=== PATIENT | female | born 1970 | race Caucasian/White ===

== ENCOUNTER 2018-02-01 08:13 | Emergency (ER) | payer OTHER, MEDICAID ==
[2018-02-01] MEDS: ONDANSETRON 4 MG INJ IV (09:22)
[2018-02-01] MEDS: ACETAMINOPHEN 500 MG TAB PO (09:22)
[2018-02-01] MEDS: morphine 4 MG/ML VIAL IV (09:22)
[2018-02-01 09:24] LABS: ADD MAN DIFF? NO
[2018-02-01] MEDS: SODIUM CHLORIDE 0.9% 1L BAG IV* (09:27)
[2018-02-01 09:36] LABS: WHITE BLOOD COUNT 9.7 10^3/ul (4.8-10.8)
[2018-02-01 09:36] LABS: ABNORMAL IP MESSAGE 1; BASOPHIL # 0.1 10^3/ul (0.0-0.1); BASOPHILS % 0.5 % (0.0-2.0); EOSINOPHILS % 0.3 % (0.0-7.0); HEMATOCRIT 40.2 % (37.0-47.0); LYMPHOCYTES # 0.5 10^3/ul (0.8-2.9); LYMPHOCYTES % 4.8 % (15.0-51.0); MEAN CORPUSCULAR HEMOGLOBIN 24.8 pg (29.0-33.0); MEAN CORPUSCULAR HGB CONC 32.3 g/dl (32.0-37.0); MEAN CORPUSCULAR VOLUME 76.7 fl (82.0-101.0); MEAN PLATELET VOLUME 12.6 fl (7.4-10.4); MONOCYTE # 0.3 10^3/ul (0.3-0.9); NEUTROPHIL # 8.9 10^3/ul (1.6-7.5); NEUTROPHILS % 91.1 % (39.0-77.0); PLATELET COUNT 152 10^3/UL (140-415); RED BLOOD COUNT 5.24 10^6/ul (4.20-5.40); RED CELL DISTRIBUTION WIDTH 16.2 % (11.5-14.5)
[2018-02-01 09:44] LABS: ALANINE AMINOTRANSFERASE 33 IU/L (13-69); ALBUMIN 3.9 g/dl (3.3-4.9); ALBUMIN/GLOBULIN RATIO 1.11; ALKALINE PHOSPHATASE 173 IU/L (42-121); ANION GAP 13 (8-16); ASPARTATE AMINO TRANSFERASE 31 IU/L (15-46); BILIRUBIN,INDIRECT 0.7 mg/dl (0-1.1); BILIRUBIN,TOTAL 0.7 mg/dl (0.2-1.3); BLOOD UREA NITROGEN 10 mg/dl (7-20); CALCIUM 8.9 mg/dl (8.4-10.2); CARBON DIOXIDE 29 mmol/L (21-31); CHLORIDE 101 mmol/L (97-110); CREATININE 0.61 mg/dl (0.44-1.00); GLUCOSE 264 mg/dl (70-220); SODIUM 140 mmol/L (135-144); TOTAL PROTEIN 7.4 g/dl (6.1-8.1)
[2018-02-01 09:47] LABS: POTASSIUM 2.9 mmol/L (3.5-5.1)
[2018-02-01 09:49] LABS: POSITIVE DIFF @See below
[2018-02-01 10:08] LABS: LACTIC ACID 2.2 mmol/L (0.5-2.0)
[2018-02-01] MEDS: POTASSIUM CHLORIDE (SR) 20 MEQ TAB PO (10:12)
[2018-02-01] MEDS: CEFEPIME 2GM/50 ML (PMX) 50 ML IVPB (10:33)
[2018-02-01 10:54] LABS: ADD UMIC YES; UR ASCORBIC ACID NEGATIVE (NEGATIVE); UR BACTERIA MODERATE /HPF (NONE SEEN); UR BILIRUBIN (Dip) NEGATIVE (NEGATIVE); UR BLOOD (Dip) 2+ mg/dL (NEGATIVE); UR CLARITY CLOUDY (CLEAR); UR COLOR YELLOW (YELLOW); UR GLUCOSE (Dip) 2+ mg/dL (NEGATIVE); UR KETONES (Dip) 1+ mg/dL (NEGATIVE); UR LEUKOCYTE ESTERASE (Dip) 3+ Leu/ul (NEGATIVE); UR NITRITE (Dip) NEGATIVE (NEGATIVE); UR RBC 27 /HPF (0-5); UR TOTAL PROTEIN (Dip) 2+ mg/dl (NEGATIVE); UR UROBILINOGEN (Dip) 2+ mg/dL (NEGATIVE); UR WBC > 182 /HPF (0-5)
[2018-02-01 11:56] LABS: LACTIC ACID 1.3 mmol/L (0.5-2.0)
[2018-02-01 22:42] LABS: BAND NEUTROPHILS #M 0.7 10^3/ul (0.0-0.6); BAND NEUTROPHILS % (M) 8 % (0-4); BASOPHIL #M 0.1 10^3/ul (0.0-0.0); BASOPHILS % (M) 2 % (0-2); EOSINOPHILS % (M) 3 % (0-7); ERYTHROBLAST% (NRBC) (M) 1 % (0-0); GIANT THROMBO% (M) 5 % (0-0); LYMPHOCYTES #M 0.5 10^3/ul (0.8-2.9); LYMPHOCYTES % (M) 6 % (15-51); MONOCYTES % (M) 1 % (0-11); PLATELET ESTIMATE DECREASED; POIKILOCYTOSIS 1+ (0-0); SEG NEUT #M 7.8 10^3/ul (1.6-7.5); SEGMENTED NEUTROPHILS (M) % 80 % (39-77); SMUDGE%M 7 % (0-0)
== END 2018-02-01 13:54 | disposition home or self-care (01) ==
LOC: FTE 08:13
DX: N12 Tubulo-interstitial nephritis, not specified as acute or chronic (principal); E11.9 Type 2 diabetes mellitus without complications; E87.6 Hypokalemia; Z79.84 Long term (current) use of oral hypoglycemic drugs
CPT/HCPCS: 36415; 74176; 80053; 81001; 83605; 84703; 85025; 87040; 87086; 96361; 96365; 96375; 99285-25

== ENCOUNTER 2018-02-01 18:52 | Inpatient (IN) | payer OTHER ==
[2018-02-01] MEDS: ACETAMINOPHEN 325 MG TAB PO (20:06)
[2018-02-01] MEDS: ONDANSETRON 4 MG INJ IV (20:06)
[2018-02-01] MEDS: SODIUM CHLORIDE 0.9% 1L BAG IV* (20:07)
[2018-02-01 20:08] LABS: ABNORMAL IP MESSAGE 1
[2018-02-01 20:10] LABS: HEMATOCRIT 38.2 % (37.0-47.0); HEMOGLOBIN 12.1 g/dl (12.0-16.0); MEAN CORPUSCULAR HEMOGLOBIN 24.6 pg (29.0-33.0); MEAN CORPUSCULAR HGB CONC 31.7 g/dl (32.0-37.0); MEAN CORPUSCULAR VOLUME 77.6 fl (82.0-101.0); MEAN PLATELET VOLUME 12.6 fl (7.4-10.4); PLATELET COUNT 124 10^3/UL (140-415); RED BLOOD COUNT 4.92 10^6/ul (4.20-5.40); RED CELL DISTRIBUTION WIDTH 16.2 % (11.5-14.5)
[2018-02-01 20:10] LABS: WHITE BLOOD COUNT 4.6 10^3/ul (4.8-10.8)
[2018-02-01 20:16] LABS: ALANINE AMINOTRANSFERASE 37 IU/L (13-69); ALBUMIN 3.7 g/dl (3.3-4.9); ALBUMIN/GLOBULIN RATIO 1.05; ALKALINE PHOSPHATASE 159 IU/L (42-121); ANION GAP 16 (8-16); ASPARTATE AMINO TRANSFERASE 32 IU/L (15-46); BILIRUBIN,INDIRECT 0.7 mg/dl (0-1.1); BILIRUBIN,TOTAL 0.7 mg/dl (0.2-1.3); BLOOD UREA NITROGEN 10 mg/dl (7-20); CALCIUM 8.3 mg/dl (8.4-10.2); CARBON DIOXIDE 23 mmol/L (21-31); CHLORIDE 105 mmol/L (97-110); GLUCOSE 259 mg/dl (70-220); POTASSIUM 4.1 mmol/L (3.5-5.1); SODIUM 140 mmol/L (135-144); TOTAL PROTEIN 7.2 g/dl (6.1-8.1)
[2018-02-01 20:18] LABS: LACTIC ACID 2.2 mmol/L (0.5-2.0)
[2018-02-01 20:28] LABS: TROPONIN-I 0.181 ng/ml (0.000-0.120)
[2018-02-01 20:43] LABS: ADD UMIC YES; UR ASCORBIC ACID NEGATIVE (NEGATIVE); UR BACTERIA FEW /HPF (NONE SEEN); UR BILIRUBIN (Dip) NEGATIVE (NEGATIVE); UR BLOOD (Dip) 1+ mg/dL (NEGATIVE); UR CLARITY CLEAR (CLEAR); UR COLOR YELLOW (YELLOW); UR GLUCOSE (Dip) 2+ mg/dL (NEGATIVE); UR KETONES (Dip) 1+ mg/dL (NEGATIVE); UR LEUKOCYTE ESTERASE (Dip) TRACE Leu/ul (NEGATIVE); UR NITRITE (Dip) NEGATIVE (NEGATIVE); UR RBC 8 /HPF (0-5); UR SPECIFIC GRAVITY (Dip) 1.013 (1.003-1.030); UR TOTAL PROTEIN (Dip) 1+ mg/dl (NEGATIVE); UR UROBILINOGEN (Dip) 2+ mg/dL (NEGATIVE); UR WBC 49 /HPF (0-5)
[2018-02-01] MEDS: ASPIRIN 81 MG TAB PO (20:57)
[2018-02-01 21:09] LABS: ADD MAN DIFF? YES; POSITIVE DIFF @See below
[2018-02-01] MEDS: CEFEPIME 1GM/50 ML (PMX) 50 ML IVPB (22:01)
[2018-02-01 22:29] LABS: LACTIC ACID 1.1 mmol/L (0.5-2.0)
[2018-02-01] MEDS ORDERED: NITROGLYCERIN (SL) 0.4 MG TAB SL (23:30)
[2018-02-01] MEDS ORDERED: morphine 2 MG INJ IV (23:30)
[2018-02-02 00:20] LABS: LACTIC ACID 1.2 mmol/L (0.5-2.0)
[2018-02-02] MEDS: SOD CHLORIDE 0.9% 1,000 ML IV ×2 (00:20→17:25)
[2018-02-02] MEDS: LEVOFLOXACIN 500MG/D5W (PMX) 100 ML IVPB (00:29)
[2018-02-02] MEDS ORDERED: DEXTROSE 50% 50 ML SYRINGE IV ×2 (00:30)
[2018-02-02] MEDS ORDERED: GLUCOSE GEL 15 GRAM TUBE PO ×2 (00:30)
[2018-02-02] MEDS ORDERED: GLUCAGON 1 MG INJ IM (00:30)
[2018-02-02] MEDS ORDERED: GLUCOSE GEL 15 GRAM TUBE BUCCAL (00:30)
[2018-02-02] MEDS: ZOLPIDEM 5 MG TAB PO (00:38)
[2018-02-02 00:49] LABS: TROPONIN-I 0.343 ng/ml (0.000-0.120)
[2018-02-02] MEDS: ACCU-CHEK XX (02:00)
[2018-02-02 03:15] LABS: ABNORMAL IP MESSAGE 1; ADD MAN DIFF? NO; BASOPHILS % 0.3 % (0.0-2.0); EOSINOPHILS % 0.3 % (0.0-7.0); HEMATOCRIT 34.9 % (37.0-47.0); HEMOGLOBIN 10.9 g/dl (12.0-16.0); LYMPHOCYTES # 1.5 10^3/ul (0.8-2.9); LYMPHOCYTES % 12.9 % (15.0-51.0); MEAN CORPUSCULAR HEMOGLOBIN 24.5 pg (29.0-33.0); MEAN CORPUSCULAR HGB CONC 31.2 g/dl (32.0-37.0); MEAN CORPUSCULAR VOLUME 78.4 fl (82.0-101.0); MEAN PLATELET VOLUME 13.1 fl (7.4-10.4); MONOCYTE # 0.5 10^3/ul (0.3-0.9); MONOCYTES % 4.2 % (0.0-11.0); NEUTROPHIL # 9.7 10^3/ul (1.6-7.5); PLATELET COUNT 134 10^3/UL (140-415); RED BLOOD COUNT 4.45 10^6/ul (4.20-5.40); RED CELL DISTRIBUTION WIDTH 16.8 % (11.5-14.5)
[2018-02-02 03:15] LABS: WHITE BLOOD COUNT 11.8 10^3/ul (4.8-10.8)
[2018-02-02 03:25] LABS: POSITIVE DIFF @See below
[2018-02-02 03:43] LABS: CREATINE KINASE 56 IU/L (23-200)
[2018-02-02 03:49] LABS: ALANINE AMINOTRANSFERASE 32 IU/L (13-69); ALKALINE PHOSPHATASE 95 IU/L (42-121); ANION GAP 13 (8-16); ASPARTATE AMINO TRANSFERASE 26 IU/L (15-46); BILIRUBIN,INDIRECT 0.4 mg/dl (0-1.1); BILIRUBIN,TOTAL 0.4 mg/dl (0.2-1.3); BLOOD UREA NITROGEN 9 mg/dl (7-20); CALCIUM 7.6 mg/dl (8.4-10.2); CARBON DIOXIDE 22 mmol/L (21-31); CHLORIDE 111 mmol/L (97-110); CHOL/HDL RATIO 5.7 RATIO; CHOLESTEROL 120 mg/dl (100-200); CREATININE 0.47 mg/dl (0.44-1.00); GLUCOSE 258 mg/dl (70-220); HDL CHOLESTEROL 21 mg/dl (34-88); LDL CHOLESTEROL,CALCULATED 57 mg/dl; SODIUM 142 mmol/L (135-144); TOTAL PROTEIN 6.3 g/dl (6.1-8.1); TRIGLYCERIDES 211 mg/dl (0-149)
[2018-02-02 03:56] LABS: CK INDEX 2.2; CK-MB 1.21 ng/ml (0.0-2.4); TROPONIN-I 0.214 ng/ml (0.000-0.120)
[2018-02-02 03:57] LABS: TROPONIN-I 0.215 ng/ml (0.000-0.120)
[2018-02-02] MEDS: PANTOPRAZOLE 40 MG INJ IV (05:54)
[2018-02-02] MEDS: ASPIRIN (EC) 81 MG TAB PO (08:34)
[2018-02-02] MEDS: ENOXAPARIN 40 MG/0.4 ML SYG SC (08:35)
[2018-02-02] MEDS: INSULIN ASPART [NOVOLOG] 3 ML PEN SC ×4 (08:37→20:52)
[2018-02-02 09:30] LABS: CREATINE KINASE 49 IU/L (23-200)
[2018-02-02 09:42] LABS: CK INDEX 2.4; CK-MB 1.17 ng/ml (0.0-2.4)
[2018-02-02] MEDS: ACETAMINOPHEN 325 MG TAB PO (16:17)
[2018-02-02] MEDS ORDERED: morphine LIQ (10 MG/5 ML) CUP PO (17:00)
[2018-02-02] MEDS: CEFEPIME 1GM/50 ML (PMX) 50 ML IVPB (20:50)
[2018-02-02] MEDS: INSULIN GLARGINE [LANTus] (100 UNITS/ML) SYG SC (20:53)
[2018-02-03] MEDS: ACCU-CHEK XX (02:00)
[2018-02-03] MEDS: PANTOPRAZOLE 40 MG INJ IV (05:31)
[2018-02-03 07:44] LABS: ADD MAN DIFF? NO
[2018-02-03 07:54] LABS: WHITE BLOOD COUNT 7.4 10^3/ul (4.8-10.8)
[2018-02-03 07:54] LABS: ABNORMAL IP MESSAGE 1; BASOPHILS % 0.4 % (0.0-2.0); EOSINOPHILS % 0.5 % (0.0-7.0); HEMATOCRIT 34.3 % (37.0-47.0); HEMOGLOBIN 10.7 g/dl (12.0-16.0); LYMPHOCYTES % 13.9 % (15.0-51.0); MEAN CORPUSCULAR HEMOGLOBIN 24.1 pg (29.0-33.0); MEAN CORPUSCULAR HGB CONC 31.2 g/dl (32.0-37.0); MEAN CORPUSCULAR VOLUME 77.3 fl (82.0-101.0); MONOCYTE # 0.6 10^3/ul (0.3-0.9); MONOCYTES % 7.7 % (0.0-11.0); NEUTROPHIL # 5.7 10^3/ul (1.6-7.5); NEUTROPHILS % 77.1 % (39.0-77.0); PLATELET COUNT 124 10^3/UL (140-415); RED BLOOD COUNT 4.44 10^6/ul (4.20-5.40); RED CELL DISTRIBUTION WIDTH 16.4 % (11.5-14.5)
[2018-02-03 07:59] LABS: POSITIVE DIFF @See below
[2018-02-03 08:39] LABS: ANION GAP 15 (8-16); BLOOD UREA NITROGEN 5 mg/dl (7-20); CALCIUM 8.3 mg/dl (8.4-10.2); CARBON DIOXIDE 22 mmol/L (21-31); CHLORIDE 104 mmol/L (97-110); CREATININE 0.47 mg/dl (0.44-1.00); GLUCOSE 164 mg/dl (70-220); POTASSIUM 3.4 mmol/L (3.5-5.1); SODIUM 138 mmol/L (135-144)
[2018-02-03] MEDS: CEFEPIME 1GM/50 ML (PMX) 50 ML IVPB ×2 (08:40→20:24)
[2018-02-03] MEDS: ASPIRIN (EC) 81 MG TAB PO (08:40)
[2018-02-03] MEDS: INSULIN ASPART [NOVOLOG] 3 ML PEN SC ×4 (08:42→20:24)
[2018-02-03] MEDS: ENOXAPARIN 40 MG/0.4 ML SYG SC (08:43)
[2018-02-03 08:44] LABS: MAGNESIUM 1.6 mg/dl (1.7-2.5)
[2018-02-03 08:44] LABS: PHOSPHORUS 3.1 mg/dl (2.5-4.9)
[2018-02-03] MEDS: SOD CHLORIDE 0.9% 1,000 ML IV ×2 (08:44→23:50)
[2018-02-03] MEDS: LOSARTAN 50 MG TAB PO ×2 (13:01→20:21)
[2018-02-03] MEDS: ACETAMINOPHEN 325 MG TAB PO ×2 (13:10→20:20)
[2018-02-03] MEDS: POTASSIUM CHLORIDE (SR) 20 MEQ TAB PO (13:54)
[2018-02-03] MEDS: MAGNESIUM SULFATE 2 GM/50 ML 50 ML IVPB (13:54)
[2018-02-03] MEDS: FLUCONAZOLE 100 MG TAB PO (17:23)
[2018-02-03] MEDS: INSULIN GLARGINE [LANTus] (100 UNITS/ML) SYG SC (20:23)
[2018-02-04] MEDS: ACCU-CHEK XX (02:00)
[2018-02-04] MEDS ORDERED: VANCOMYCIN IV PER PHARMACY XX (04:30)
[2018-02-04] MEDS ORDERED: ACETAMINOPHEN 1000MG/100ML IV 100 ML IVPB (04:30)
[2018-02-04] MEDS: PANTOPRAZOLE 40 MG INJ IV (05:25)
[2018-02-04] MEDS: SOD CHLORIDE 0.9% 1,000 ML IV (05:26)
[2018-02-04] MEDS: PIPER-TAZO 3.375 GM IV (PMX) 100 ML IVPB ×4 (05:28→23:38)
[2018-02-04 05:52] LABS: ADD MAN DIFF? NO
[2018-02-04 06:03] LABS: BASOPHILS % 0.6 % (0.0-2.0); EOSINOPHILS % 0.2 % (0.0-7.0); HEMATOCRIT 35.7 % (37.0-47.0); HEMOGLOBIN 11.2 g/dl (12.0-16.0); LYMPHOCYTES # 0.7 10^3/ul (0.8-2.9); LYMPHOCYTES % 12.4 % (15.0-51.0); MEAN CORPUSCULAR HEMOGLOBIN 24.1 pg (29.0-33.0); MEAN CORPUSCULAR HGB CONC 31.4 g/dl (32.0-37.0); MEAN CORPUSCULAR VOLUME 76.8 fl (82.0-101.0); MEAN PLATELET VOLUME 11.9 fl (7.4-10.4); MONOCYTE # 0.5 10^3/ul (0.3-0.9); MONOCYTES % 8.3 % (0.0-11.0); NEUTROPHIL # 4.2 10^3/ul (1.6-7.5); NEUTROPHILS % 78.1 % (39.0-77.0); PLATELET COUNT 123 10^3/UL (140-415); RED BLOOD COUNT 4.65 10^6/ul (4.20-5.40); RED CELL DISTRIBUTION WIDTH 16.4 % (11.5-14.5)
[2018-02-04 06:03] LABS: WHITE BLOOD COUNT 5.4 10^3/ul (4.8-10.8)
[2018-02-04 06:52] LABS: PHOSPHORUS 3.1 mg/dl (2.5-4.9)
[2018-02-04 06:52] LABS: MAGNESIUM 1.9 mg/dl (1.7-2.5)
[2018-02-04 06:54] LABS: ANION GAP 13 (8-16); BLOOD UREA NITROGEN 6 mg/dl (7-20); CALCIUM 8.6 mg/dl (8.4-10.2); CARBON DIOXIDE 24 mmol/L (21-31); CHLORIDE 106 mmol/L (97-110); GLUCOSE 173 mg/dl (70-220); SODIUM 139 mmol/L (135-144)
[2018-02-04] MEDS: VANCOMYCIN 1.5 GM in SOD CHLORIDE 0.9% 250 ML IVPB (07:40)
[2018-02-04] MEDS: INSULIN ASPART [NOVOLOG] 3 ML PEN SC ×5 (07:42→20:53)
[2018-02-04] MEDS: ASPIRIN (EC) 81 MG TAB PO (08:08)
[2018-02-04] MEDS: LOSARTAN 50 MG TAB PO ×2 (08:08→20:44)
[2018-02-04] MEDS: REGADENOSON 0.4 MG/5 ML SYG (11:45)
[2018-02-04] MEDS: ENOXAPARIN 40 MG/0.4 ML SYG SC (12:46)
[2018-02-04] MEDS: FLUCONAZOLE 100 MG TAB PO (17:14)
[2018-02-04] MEDS: VANCOMYCIN 1.25 GM in SOD CHLORIDE 0.9% 250 ML IVPB (20:42)
[2018-02-04] MEDS: INSULIN GLARGINE [LANTus] (100 UNITS/ML) SYG SC (20:52)
[2018-02-05] MEDS: ACCU-CHEK XX (02:35)
[2018-02-05] MEDS: PANTOPRAZOLE 40 MG INJ IV (06:00)
[2018-02-05] MEDS: PIPER-TAZO 3.375 GM IV (PMX) 100 ML IVPB ×2 (06:00→12:34)
[2018-02-05 08:05] LABS: ADD MAN DIFF? NO
[2018-02-05 08:09] LABS: WHITE BLOOD COUNT 4.9 10^3/ul (4.8-10.8)
[2018-02-05 08:09] LABS: BASOPHILS % 0.6 % (0.0-2.0); EOSINOPHILS # 0.1 10^3/ul (0.0-0.5); EOSINOPHILS % 2.6 % (0.0-7.0); HEMOGLOBIN 10.8 g/dl (12.0-16.0); LYMPHOCYTES # 1.3 10^3/ul (0.8-2.9); LYMPHOCYTES % 26.8 % (15.0-51.0); MEAN CORPUSCULAR HEMOGLOBIN 24.2 pg (29.0-33.0); MEAN CORPUSCULAR HGB CONC 31.8 g/dl (32.0-37.0); MEAN CORPUSCULAR VOLUME 76.2 fl (82.0-101.0); MEAN PLATELET VOLUME 11.9 fl (7.4-10.4); MONOCYTE # 0.7 10^3/ul (0.3-0.9); MONOCYTES % 14.8 % (0.0-11.0); NEUTROPHIL # 2.7 10^3/ul (1.6-7.5); NEUTROPHILS % 54.8 % (39.0-77.0); PLATELET COUNT 141 10^3/UL (140-415); RED BLOOD COUNT 4.46 10^6/ul (4.20-5.40)
[2018-02-05] MEDS: ACETAMINOPHEN 325 MG TAB PO (08:19)
[2018-02-05] MEDS: ASPIRIN (EC) 81 MG TAB PO (08:19)
[2018-02-05] MEDS: VANCOMYCIN 1.25 GM in SOD CHLORIDE 0.9% 250 ML IVPB (08:19)
[2018-02-05] MEDS: LOSARTAN 50 MG TAB PO ×2 (08:19→20:33)
[2018-02-05] MEDS: INSULIN ASPART [NOVOLOG] 3 ML PEN SC ×4 (08:21→20:38)
[2018-02-05] MEDS: ENOXAPARIN 40 MG/0.4 ML SYG SC (08:22)
[2018-02-05 08:36] LABS: ANION GAP 14 (8-16); BLOOD UREA NITROGEN 7 mg/dl (7-20); CALCIUM 8.4 mg/dl (8.4-10.2); CARBON DIOXIDE 25 mmol/L (21-31); CHLORIDE 105 mmol/L (97-110); CREATININE 0.57 mg/dl (0.44-1.00); GLUCOSE 172 mg/dl (70-220); POTASSIUM 3.4 mmol/L (3.5-5.1); SODIUM 141 mmol/L (135-144)
[2018-02-05 08:41] LABS: PHOSPHORUS 3.6 mg/dl (2.5-4.9)
[2018-02-05 08:41] LABS: MAGNESIUM 1.7 mg/dl (1.7-2.5)
[2018-02-05] MEDS: POTASSIUM CHLORIDE (SR) 20 MEQ TAB PO ×2 (09:45→09:50)
[2018-02-05] MEDS: SOD CHLORIDE 0.9% 1,000 ML IV (15:50)
[2018-02-05] MEDS: VORICONAZOLE 200 MG TAB PO ×2 (17:20→23:59)
[2018-02-05] MEDS: INSULIN GLARGINE [LANTus] (100 UNITS/ML) SYG SC (20:39)
[2018-02-06] MEDS: ACCU-CHEK XX (01:29)
[2018-02-06] MEDS: PANTOPRAZOLE 40 MG INJ IV (05:47)
[2018-02-06] MEDS: INSULIN ASPART [NOVOLOG] 3 ML PEN SC ×3 (08:11→17:50)
[2018-02-06] MEDS: ENOXAPARIN 40 MG/0.4 ML SYG SC (08:49)
[2018-02-06] MEDS: glipiZIDE 5 MG TAB PO (08:50)
[2018-02-06] MEDS: ASPIRIN (EC) 81 MG TAB PO (08:50)
[2018-02-06] MEDS: LOSARTAN 50 MG TAB PO (08:51)
[2018-02-06] MEDS: VORICONAZOLE 200 MG TAB PO (08:51)
== END 2018-02-06 18:50 | disposition home or self-care (01) | DRG 872 ==
LOC: E/R 18:52 → MS4 21:21
PROC: C22G1ZZ Tomographic (Tomo) Nuclear Medicine Imaging of Myocardium using Technetium 99m (Tc-99m) (ICD-10-PCS; principal; 2018-02-04)
DX: A41.9 Sepsis, unspecified organism (principal); N10 Acute pyelonephritis; B48.8 Other specified mycoses; E11.65 Type 2 diabetes mellitus with hyperglycemia; E66.9 Obesity, unspecified; Z68.39 Body mass index [BMI] 39.0-39.9, adult; D50.9 Iron deficiency anemia, unspecified; D69.6 Thrombocytopenia, unspecified; R79.89 Other specified abnormal findings of blood chemistry; R07.9 Chest pain, unspecified; E83.42 Hypomagnesemia; E87.6 Hypokalemia; I10 Essential (primary) hypertension; R16.0 Hepatomegaly, not elsewhere classified
CPT/HCPCS: 36415; 71045; 74176; 78452; 80048; 80053; 80061; 81001; 82550; 82553; 82962; 83036; 83605; 83735; 84100; 84484; 85025; 87040; 87086; 93005; 93017; 93306; 96374; 99291-25